=== PATIENT | female | born 1955 | race Caucasian/White ===

== ENCOUNTER → 2019-02-09 15:42 | Outpatient (CLI) | payer MEDICARE, SELFPAY | PROVIDERS: Family Provider Family Medicine; PCP Family Medicine; Referring Provider Dermatology; Visit Provider Dermatology | DX: Z48.817 Encounter for surgical aftercare following surgery on the skin and subcutaneous tissue (principal) | CPT/HCPCS: 87070; 87077; 87186; 87205 ==

== ENCOUNTER → 2019-05-05 | Outpatient (CLI) | payer MEDICARE, SELFPAY | END | disposition home or self-care (01) | PROVIDERS: PCP Family Medicine; Referring Provider Dermatology; Visit Provider Dermatology | DX: L92.3 Foreign body granuloma of the skin and subcutaneous tissue (principal) | CPT/HCPCS: 87070; 87077; 87186; 87205 ==

== ENCOUNTER → 2022-06-22 | Outpatient (CLI) | payer MEDICARE, MEDICAID, SELFPAY | END | disposition home or self-care (01) | LOC: LAB 15:41 | PROVIDERS: PCP Family Medicine; Referring Provider Otolaryngology; Visit Provider Otolaryngology | DX: J32.9 Chronic sinusitis, unspecified (principal) | CPT/HCPCS: 87070; 87205 ==

== ENCOUNTER → 2022-11-21 | Outpatient (CLI) | payer MEDICARE, MEDICAID, SELFPAY ==
--- NOTE | 2022-11-21 13:24 | CT_ITS ---
STUDY: CT SOFT TISSUE NECK WITHOUT CONTRAST REASON FOR EXAM: Female, 67 years old. TONGUE BASE MASS. HISTORY OF CLL RADIATION DOSAGE (If Supplied By Facility): CTDIvol = ( 18.59 ) mGy, DLP = ( 545.34 ) mGycm TECHNIQUE: The patient was scanned in a multi-detector CT scanner. High resolution transaxial imaging was performed without the administration of intravenous contrast material. Sagittal and coronal images were reconstructed. Individualized dose optimization techniques were used for this CT. COMPARISON: None. FINDINGS: Normal bilateral parotid glands. Normal bilateral manager pmo spaces. Normal bilateral parapharyngeal spaces. Normal bilateral carotid spaces. Normal bilateral sublingual and submandibular glands and spaces. Normal visualized nasopharynx. Normal retropharyngeal space. Normal perivertebral space. Normal visualized bilateral faucial tonsils. The visualized tongue, tongue base and oropharynx are normal. There are multiple mildly enlarged bilateral deep and superficial cervical nodes as well as bilateral supraclavicular and axillary adenopathy . There is an epiglottic nodule extending into the left vallecula measuring approximately measuring approximately 8.5 x 7 x 11 mm of indeterminate etiology. Neoplasm not excluded and endoscopy recommended.. The pre-epiglottic and paraglottic adipose spaces are normal. Normal visualized bilateral piriform sinuses, aryepiglottic folds, vocal cords, and arytenoid-cricoid articulations. Normal subglottic trachea. Normal bilateral lobes of the thyroid gland. Normal visualized pulmonary apices. Polypoid mucosal thickening in the right maxillary sinus. Surgical spine demonstrates degenerative change CT/Soft Tissue Neck without Contr IMPRESSION: Small epiglottic nodule possibly neoplastic.. Endoscopy recommended for further evaluation Bilateral cervical supraclavicular and axillary adenopathy consistent with clinical history of CLL Electronically Signed: Matthew Chatman MD at 19:24 EDT ,
== END | disposition home or self-care (01) ==
PROVIDERS: PCP Family Medicine; Referring Provider Otolaryngology; Visit Provider Otolaryngology
DX: R22.0 Localized swelling, mass and lump, head (principal)
CPT/HCPCS: 70490

== ENCOUNTER 2024-03-16 09:57 | Emergency (ER) | payer MEDICARE, MEDICAID, SELFPAY ==
[2024-03-16 09:59] VITALS: BP 166/72; PULSE 69; RESP 18; TEMP 36.6; O2SAT 97; BMI 27.1
--- NOTE | 2024-03-16 10:26 | EKG12_ITS ---
Test Reason : HIGH BP Blood Pressure : */* mmHG Vent. Rate : 68 BPM Atrial Rate : 68 BPM P-R Int : 144 ms QRS Dur : 78 ms QT Int : 420 ms P-R-T Axes : 80 64 68 degrees QTcB Int : 446 ms Normal sinus rhythm Normal ECG Confirmed by CELINE MARK, SONU ([id number]), material expeditor MARTHA DUFFY ([id number]) on 03/24/2024 6:38:10 AM Referred By: Confirmed By: SONU BERGER MD
[2024-03-16 10:46] LABS: Absolute Lymphocyte Count 19.58 X10^3/uL (0.83-4.51); Absolute Neutrophil Count 4.5 X10^3/uL (2.0-7.7); Basophil# 0.07 X10^3/uL; Basophil% 0.3 % (0-1); Eosinophils% 0.4 % (0-5); Hematocrit 37.6 % (37-47); Hemoglobin 12.3 g/dL (12.0-15.0); Lymphocyte # 19.58 X10^3/ul (0.83-4.51); Mean Corp Hgb Conc 32.7 g/dL (32-36); Mean Corpuscular Hgb 30.7 pg (27.0-32.0); Mean Corpuscular Volume 93.8 fL (81-99); Mean Platelet Vol. 10.5 fl (6.2-12.0); Monocyte# 1.46 X10^3/uL; Monocyte% 5.7 % (0-10); NRBC Flagged by Analyzer 0.1 % (0-5); Neutrophil # 4.46 X10^3/uL (2.7-7.7); Neutrophil % 17.2 % (47-70); POSITIVE DIFFERENTIAL YES; POSITIVE MORPHOLOGY YES; Platelet Count 122 K/mm3 (150-450); RBC Distribution Width SD 47.6 fl (35.1-43.9); Red Blood Count 4.01 M/mm3 (4.2-5.4); White Blood Count 25.8 K/mm3 (4.4-11.0)
[2024-03-16 10:47] LABS: Differential Indicated SCAN CRITERIA MET
--- NOTE | 2024-03-16 10:53 | EX.ED.DYSGE1 ---
HPI History of Present Illness Chief Complaint: Hypertension Narrative Narrative: Patient is a 68-year-old female with a past medical history of hypertension, CLL who presented to the emergency department with a chief complaint of high blood pressure, right-sided kidney pain which has been going on for quite some time she states that she is told her primary care physician about this, as well as some sweating periodically and she thought that this may be her CLL but is uncertain. States that she has had her thyroid checked out and has been off and on her thyroid medications as prescribed. Patient states this morning she did not feel right she felt very lightheaded and that she may pass out she checked her blood pressure several times and noted that this was running high. States that recently she was placed on hydrochlorothiazide 25 mg a day. States that she has been taking her medication as prescribed. PFSH [facility] Home Medications ?Medication ?Instructions ?Recorded ?Last Taken ?Type fluticasone propionate 50 2 spray intranasal DAILY 03/15/23 Unknown History mcg/actuation nasal spray,suspension oxycodone-acetaminophen 7.5 mg-325 1 tab PO Q8H PRN 03/15/23 Unknown History mg tablet ropinirole 0.5 mg tablet 0.5 mg PO DAILY 03/15/23 Unknown History Allergy/AdvReac Type Severity Reaction Status Date / Time Iodinated Contrast Media Allergy Severe Hives Verified 03/16/24 09:58 codeine Allergy Rash Verified 03/16/24 09:58 latex Allergy Unknown Verified 03/16/24 09:58 Sulfa (Sulfonamide Allergy Unknown Verified 03/16/24 09:58 Antibiotics) Surgical History H/O: hysterectomy Social History household members: none current occupational status: retired Smoking Status: Light Smoker (<10/day) second hand exposure: No alcohol intake: never substance use type: does not use caffeine: Yes Type: carbonated beverages Number of servings: 3 ROS ROS ED ROS Narrative Constitutional: Complains of periodic sweating as noted above, as well as lightheadedness denies any dizziness despite in the triage note says she is got dizzy she did not after clarification Eyes: Denies changes vision Cardiovascular: Denies chest pain or palpitations Respiratory: Denies cough or wheezing shortness of breath Abdomen: Complains of kidney pain as noted above denies nausea vomit diarrhea : Denies painful urination, hematuria, polyuria Neurological: Denies any numbness, weakness, tingling Skin: Denies rashes or lesions EXAM Physical Exam Narrative Exam Narrative: General: Patient was lying in bed rest comfortably did not appear to be acute distress Head: Atraumatic, normocephalic Eyes: PERRL bilaterally, EOMI bilaterally, no conjunctival injection noted Neck: Soft, supple, trachea midline Cardiovascular: Regular in rhythm no murmurs gallops rubs noted Respiratory: Clear to auscultation bilaterally no rales rhonchi or wheezes noted Abdomen: Soft, nondistended, nontender to palpation, bowel sounds present x 4 Extremities: +5/5 strength noted in the bilateral upper and lower extremities, radial pulses +2/4 in the bilateral extremities, no pedal edema noted on Exam Neurological: Patient follow commands knew that she was at [facility] year is 2024. Sensation grossly intact. NIH of 0 GCS 15 Skin: Warm, dry, intact no rashes or lesions noted Const Vital Signs: 03/16/24 09:58 03/16/24 09:59 03/16/24 10:26 Temperature 97.9 F Temperature Source Oral Pulse Rate 69 Respiratory Rate 18 Respiratory Effort Normal Non-Labored Respiratory Pattern Normal Blood Pressure 166/72 H Blood Pressure Mean 103 Pulse Ox 97 Oxygen Delivery Method Room Air Room Air 03/16/24 11:58 03/16/24 13:00 Temperature Temperature Source Pulse Rate Respiratory Rate Respiratory Effort Respiratory Pattern Blood Pressure 120/73 120/79 Blood Pressure Mean 88 92 Pulse Ox 95 95 Oxygen Delivery Method Room Air Room Air MDM MDM MDM Narrative Medical decision making narrative: Patient is a 68-year-old female who presented to the emerged part with chief complaint of high blood pressure. Patient states that this morning she checked her blood pressure was in the 170s systolic and came down to the 160 region systolic prior to her coming here. States that given that she did not feel right and could not get a hold of her primary care physician she came here further evaluation management. On the differential diagnose includes but not limited to hypertensive emergency, central hypertension, electrolyte abnormality, CLL flare, hypothyroidism. Once workup is obtained reviewed she will be reevaluated. Patient's CBC was significant leukocytosis of 25,000, hemoglobin 12.3, platelet count was noted be 122, absolute lymphocyte count was 19.58 there is a chance that her CLL is flaring and return. Patient sodium was noted 136, potassium 4.2, creatinine was elevated 1.16. Patient's calcium was normal at 9.7. Patient's troponin normal at 6 with a delta troponin obtained at 8 as well. This is normal. Patient's EKG was reviewed and independently interpreted by myself which showed sinus rhythm with rate of 60 bpm. Patient's TSH normal at 2.51 with a free T4 and T3 at 1 and 2.6 respectively. Patient's urinalysis did not show any evidence of infection. Patient's chest x-ray reviewed by myself and by radiology which showed no acute pulmonary processes. Patient's blood pressure has normalized here in the emergency department at 120/79. Patient ambulated well here in the emerged department without any complications. At this point time she would like to go home. She was advised to follow-up with her four slide machine operator on her recent blood work here in the emergency department. She is advised to follow-up with her primary care physician on her blood pressure. She was encouraged return for worsening symptoms or concerns. She is agreeable to plan she like to go home all question concerns answered discharged home in stable condition. Lab Data Labs: Laboratory Results - last 24 hr 03/16/24 03/16/24 03/16/24 10:31 11:04 13:43 WBC 25.8 H RBC 4.01 L Hgb 12.3 Hct 37.6 MCV 93.8 MCH 30.7 MCHC 32.7 RDW Std Deviation 47.6 H RDW Coeff of Bj 14.0 Plt Count 122 L MPV 10.5 Immature Gran % (Auto) 0.400 Neut % (Auto) 17.2 L Lymph % (Auto) 76.0 H Pender % (Auto) 5.7 Eos % (Auto) 0.4 Baso % (Auto) 0.3 Absolute Neuts (auto) 4.5 Absolute Lymphs (auto) 19.58 H Nucleated RBC % 0.1 Differential Comment SCANNED Diff Path Review May foll Atypical Lymphocytes 3+ Sodium 136 Potassium 4.2 Chloride 102 Carbon Dioxide 29.0 Anion Gap 5 BUN 15 Creatinine 1.16 H Estim Creat Clear Calc 40.54 Est GFR (MDRD) Af Amer 59 L Est GFR (MDRD) Non-Af 49 L BUN/Creatinine Ratio 12.9 Glucose 117 H Calcium 9.7 Troponin I High Sens 6 8 TSH 2.510 Free T4 1.00 Free T3 pg/dL 2.6 Urine Color Yellow Urine Clarity Clear Urine pH 7.0 Ur Specific [place] 1.005 Urine Protein 15 H Urine Glucose (UA) Normal Urine Ketones Negative Urine Occult Blood 25 H Urine Nitrite Negative Urine Bilirubin Negative Urine Urobilinogen Normal Ur Leukocyte Esterase 25 H Urine RBC 0-5 SEEN Urine WBC 0-5 SEEN Ur Squamous Epith Cells 0 SEEN Urine Bacteria 0 SEEN Urine Mucus 0 SEEN Radiography Diagnostic Testing: Clinical Impression(s) from Imaging Studies Chest X-Ray 03/16/24 11:10 IMPRESSION: No acute pulmonary process Electronically Signed: Emir Gonzales MD at 11:31 EST Reading Location ID and State: [address] [place] [address] , Service support , Discharge Plan Triage Chief Complaint: Hypertension ED Provider: Bridger Oseguera Dx/Rx/DC Orders Clinical Impression: Hypertension Prescriptions: No Action ropinirole 0.5 mg tablet 0.5 mg PO DAILY fluticasone propionate 50 mcg/actuation spray,suspension 2 spray intranasal DAILY Rx Instructions: administer into each nostril oxycodone-acetaminophen 7.5-325 mg tablet 1 tab PO Q8H PRN Primary Care Provider: Weston Matamoros Referrals: Weston Matamoros DO [Primary Care Provider] - Activity Restrictions/Additional Instructions: Follow-up with your four slide machine operator on your CLL. Follow-up with your primary care physician on your high blood pressure. Return with worsening symptoms or concerns. Tell them that your white blood cell count was 25.8, your hemoglobin was 12.3, your platelet count was 122, your lymphocyte count was 76 with a neutrophil count of 17 with a absolute neutrophil count of 4.5 and a absolute lymphocyte count of 19.58. 3+ atypical lymphocytes noted. Call them either this afternoon or tomorrow for their earliest appointment. Print Language: Italian Disposition Disposition: Home, Self Care
[2024-03-16 11:06] LABS: Atypical Lymphocyte 3+ %; Differential Comment SCANNED
[2024-03-16 11:08] LABS: Anion Gap 5 (5-15); BUN 15 mg/dL (7-18); BUN/Creat Ratio 12.9 RATIO (10-20); Calcium,Total 9.7 mg/dL (8.5-10.1); Chloride 102 mmol/L (98-107); Creatinine, Serum 1.16 mg/dL (0.55-1.02); EST Glomerular Filtration Rate 49 mL/min (>60); Est Glom Filt Rate - Afr Amer 59 mL/min (>60); Estimated Creatinine Clearance 40.54 ml/min; Free T3 2.6 pg/mL (2.18-3.98); Glucose 117 mg/dL (74-106); Potassium 4.2 mmol/L (3.5-5.1); Sodium Level 136 mmol/L (136-145); Troponin-I HS (w/2H Reflex) 6 pg/mL (3.0-54.0)
--- NOTE | 2024-03-16 11:10 | RAD_ITS ---
STUDY: X-RAY CHEST REASON FOR EXAM: Female, 68 years old. Substernal chest pain TECHNIQUE: PA and lateral views of the chest. COMPARISON: 09/19/2016 FINDINGS: The lungs are clear and expanded. There is no demonstrated pleural abnormality. Normal size heart. Normal mediastinum and erika. Normal visualized pulmonary arteries. Normal visualized aortic arch and descending thoracic aorta. Normal visualized thoracic spine. Normal visualized ribs, clavicles, and shoulders. There is no demonstrated abnormality of the visualized soft tissue structures of the upper abdomen. RAD/Chest PA and Lateral IMPRESSION: No acute pulmonary process Electronically Signed: Emir Gonzales MD at 11:31 EST ,
[2024-03-16 11:12] LABS: Bacteria 0 SEEN /hpf (None Seen); Mucous, Urine 0 SEEN /hpf (<or=2+); Squamous Epithelial Cells - UA 0 SEEN /hpf (5-10)
[2024-03-16 11:19] LABS: Color, Urine Yellow (Yellow); Glucose, Dipstick Normal (Normal); Ketone-Dipstick Negative (Negative); Leukocyte Esterase-Dipstick 25 /ul (Negative); Nitrite-Dipstick Negative (Negative); Occult Blood-Urine 25 /ul (Negative); Protein-Dipstick 15 mg/dl (Negative); Specific Gravity, Urine 1.005 (1.002-1.030); Urine Bilirubin Dipstick Negative (Negative); Urine Clarity Clear (Clear); Urine Urobilinogen Normal (Normal)
[2024-03-16 11:26] LABS: Red Blood Cells-Urine 0-5 SEEN /hpf (0-5); White Blood Cells 0-5 SEEN /hpf (0-5)
[2024-03-16 11:58] VITALS: BP 120/73; O2SAT 95
[2024-03-16 12:41] LABS: Reflex Troponin-HS? (from REC) Y
[2024-03-16 13:00] VITALS: BP 120/79; O2SAT 95
[2024-03-16 14:07] LABS: Troponin-I HS 8 pg/mL (3.0-54.0)
[2024-03-16 14:55] VITALS: BP 120/79; PULSE 69; RESP 18; TEMP 36.6; O2SAT 95
[2024-03-17 13:18] LABS: Pathologist Review Reviewed
== END 2024-03-16 14:59 | disposition home or self-care (01) ==
PROVIDERS: Emergency Provider Emergency Medicine; PCP Family Medicine; Visit Provider Emergency Medicine
DX: I10 Essential (primary) hypertension (principal); C91.10 Chronic lymphocytic leukemia of B-cell type not having achieved remission; F17.200 Nicotine dependence, unspecified, uncomplicated
CPT/HCPCS: 71046; 80048; 81001; 84439; 84443; 84481; 84484; 85025; 93005; 99284; A4216